=== PATIENT | male | born 1965 | race Caucasian/White ===

== ENCOUNTER 2017-02-19 21:30 | Inpatient (IN) ==
[2017-02-19] MEDS ORDERED: NITROGLYCERIN 2% OINT 1 INCH/GM PACK TOP STA (22:07)
[2017-02-19] MEDS ORDERED: ENOXAPARIN 100 MG/ML SYRINGE SUBCUT STA (22:07)
[2017-02-19] MEDS ORDERED: ONDANSETRON 4 MG/2 ML VIAL IV STA (22:07)
[2017-02-19] MEDS ORDERED: METOPROLOL TARTRATE 25 MG TABLET PO STA (22:07)
[2017-02-19] MEDS ORDERED: MORPHINE 2 MG/1 ML SYRINGE IV STA (22:07)
[2017-02-19] MEDS ORDERED: ASPIRIN 325 MG TABLET PO STA (22:07)
[2017-02-19] MEDS ORDERED: ALUM/MAG/SIMETH/LIDO VISC 1:1 30 ML BOTTLE PO STA (22:07)
[2017-02-19 22:15] LABS: Basophils % 0.2 % (0.0-0.8); Eosinophils # 0.2 10*3/uL (0.0-0.87); Eosinophils % 2.7 % (0.00-10.9); Hematocrit 42.5 VOL% (42.0-52.0); Hemoglobin 14.5 GM/DL (14.0-18.0); Immature Granulocytes % 0.2 %; Immature Granulocytes Absolute 0.01 #; Lymphocytes # 2.6 10*3/uL (1.4-4.0); Lymphocytes % 46.3 % (21.2-54.2); Mean Corpuscular HGB Conc 34.1 GM/DL (32-36); Mean Corpuscular Hemoglobin 29 PG (27-34); Mean Corpuscular Volume 83.7 FL (87-102); Mean Platelet Volume 9.5 FL (9.6-12.0); Monocytes # 0.5 10*3/uL (0.11-0.8); Monocytes % 9.7 % (1.7-12.7); Neutrophils # 2.3 10*3/uL (1.4-7.4); Neutrophils % 40.9 % (38.7-73.9); Platelet Count 231 T/CUMM (130-400); Red Blood Count 5.08 MC/CUMM (3.8-5.5); Red Cell Distribution Width 12.2 % (9.3-17.3); White Blood Count 5.6 T/CUMM (4-12)
[2017-02-19] MEDS ORDERED: ONDANSETRON 4 MG/2 ML VIAL ONE (22:22)
[2017-02-19] MEDS ORDERED: ASPIRIN 325 MG TABLET ONE (22:22)
[2017-02-19] MEDS ORDERED: METOPROLOL TARTRATE 25 MG TABLET ONE (22:22)
[2017-02-19] MEDS ORDERED: ENOXAPARIN 60 MG/0.6 ML SYRINGE ONE (22:22)
[2017-02-19] MEDS ORDERED: NITROGLYCERIN 2% OINT 1 INCH/GM PACK TOP ONE (22:22)
[2017-02-19] MEDS ORDERED: MORPHINE 2 MG/1 ML SYRINGE ONE (22:22)
[2017-02-19] MEDS ORDERED: ALUM/MAG/SIMETH/LIDO VISC 1:1 30 ML BOTTLE PO ONE (22:23)
[2017-02-19 22:28] LABS: PT Patient Result 10.4 SECS
--- NOTE | 2017-02-19 22:28 | XRay Report ---
XR chest 1V portable Indication: Chest pain. Comparison: Chest x-ray 02/23/2016 Technique: Portable AP chest was performed. Findings: Heart size, mediastinal contour, and hilar structures demonstrate no significant abnormalities. The lung parenchyma is clear. Bones and soft tissues demonstrate no significant abnormalities. Impression: 1. No evidence of acute pathology. 02/19/2017 10:25 PM PROCEDURE INTERPRETED AT [facility] OF [facility] Final Report Signed by: Dr. Brayan Kenney
[2017-02-19 22:37] LABS: Albumin 4.2 G/DL (3.4-5.0); Bilirubin,Total 0.9 MG/DL (0.2-1.0); Calcium 9.1 MG/DL (8.5-10.1); Magnesium 2.3 MG/DL (1.8-2.4); Osmolality,Calculated 283.1 MOS/KG (273-304); Potassium 3.5 MMOL/L (3.5-5.1); Total Protein 7.3 G/DL (6.4-8.3)
--- NOTE | 2017-02-19 23:14 | Emergency Department Note ---
Luis Ken Gwan, am scribing for, and in the presence of, Mark Velez MD 22 :11. Rosie Ken Charles R, MD, personally performed the services described in this documentation, ascribed by Leslee Smith in my presence, and it is both accurate and complete . Arrival - Arrival Chief Complaint: Chest Pain Stated Complaint: CHEST PAINS/RADIATING DOWN L ARM ED Nursing Triage Note: C/O Chest pain over left breast radiating down left arm. Onset 5-6 days ago. Pt reports taking one dose of nitro x 3 days, but just didn't want to come in. Pt denies SOB/Nausea/Diaphoresis. Pt reports that it feels like it did when he has had his previous MIs. EKG was performed at time of triage. Mode of Arrival: Ambulatory Limitations: No Limitations Source: Patient, Significant other, Old Records Reviewed, RN Notes Reviewed - History of Present Illness HPI Narrative: Patient is a 51 y/o white male who presents to the ED with crushing/squeezing chest pain that radiates down arm with an onset 5-6 days ago. Patient confirmed that he has had 2 heart cath (02/23/2016 and 06/2015), that he is followed by Dr. Kumari and Dr. Carty and that he runs 1.5 miles 2-3 times a week and has an onset of chest pain s/p. Patient noted that his associated sxs include diaphoresis and nausea. He continued to say that with onset of sxs today, he took NTG with minimal relief and that the pain is similar to pain with previous heart surgeries. While in ED, pt c/o squeezing chest pain. Onset (ago): day(s) Consistency: constant Severity: moderate Allergies/Adverse Reactions: Allergies Allergy/AdvReac Type Severity Reaction Status Date / Time Penicillins Allergy Severe HIVES Verified 02/23/16 10:03 Home Medications: Home Medications Medication Instructions Recorded Confirmed Type Aspirin EC Tab 81 mg PO DAILY tablet 06/04/15 02/19/17 Rx Losartan [Cozaar] 25 mg PO DAILY 06/04/15 02/19/17 History hydroCHLOROthiazide 12.5 mg PO DAILY 06/04/15 02/19/17 History [Hydrochlorothiazide] Ascorbic Acid Tab [Vitamin C Tab] 1,000 mg PO BID tablet 02/24/16 02/19/17 Rx Nitroglycerin Sl Tab [Nitrostat] 0.4 mg SL Q5M PRN #1 tablet 02/24/16 02/19/17 Rx Metformin HCl 500 mg PO BEDTIME 02/19/17 02/19/17 History Rosuvastatin [Crestor] 10 mg PO DAILY 02/19/17 02/19/17 History metFORMIN [Glucophage] 250 mg PO DAILY W/BREAKFAST 02/19/17 02/19/17 History Review of System - Review of System 12 point system: reviewed and no additional remarkable complaints except as stated - Review of System Constitutional: Present: as per HPI, diaphoresis Eyes: Absent: discharge Head/Ears/Nose/Throat: Absent: earache Respiratory: Absent: cough Cardiovascular: Present: as per HPI, chest pain Gastrointestinal: Present: as per HPI, nausea. Absent: abdominal pain, vomiting , diarrhea Genitourinary male: Absent: urgency Musculoskeletal: Absent: arm pain, back pain, leg pain, neck pain Skin: Absent: rash, lesions Neurological: Absent: headache, weakness Medical,Surgical,& Family Hx - Medical History Cardio: History of: Hypertension No history of: Aneurysm, Cardiac Dysrhythmia, Cerebrovascular Disease, Congenital Heart Disease, CHF, CAD, VA, Pacemaker, PVD, Valvular Heart Disease, Cardiovascular Problems Endocrine: History of: Dyslipidemia - Surgical History Cardiac Surgeries: Sugical HX of: Cardiac Catheterization (2014 WITH 2 STENTS) Patient Denies: Femoral-Popliteal Bypass Graft, Cardiac Surgery, Carotid Endarterectomy, Internal Defibrillator, Vascular Access Devices Thoracic Surgeries: Patient denies;: Organ Transplant, Lobectomy Neurologic Surgeries: Patient denies: Neurologic Surgery HEENT Surgeries: Patient denies: Carotid Endarterectomy Abdominal Surgeries: Surgical HX of: Hernia Repair Patient denies: Splenectomy Orthopedic Surgeries: Surgical HX of;: Total Knee Replacement (LEFT KNEE SCOPE) - Family History Family History: Reports;: Family Cancer (FATHER- PROSTATE CA), Family Diabetes ( MOTHER), Family Heart Disease (MOTHER AND FATHER), Family Hypertension (MOTHER AND FATHER) - Social History Smoking Status: Never smoker Frequency of Alcohol Use: None Type of Drug Use: None Exam Vital Signs: Vital Signs Temperature 98.6 F 02/19/17 21:45 Pulse Rate 58 L 02/19/17 21:45 Respiratory Rate 16 02/19/17 21:45 Blood Pressure 148/87 02/19/17 21:45 O2 Sat by Pulse Oximetry 100 02/19/17 21:45 - General General appearance: alert, in no apparent distress - Head Head exam: Present: atraumatic, normocephalic - Eye Eye exam: Present: normal appearance, PERRL, EOMI - ENT ENT exam: Present: normal oropharynx, mucous membranes moist, TM's normal bilaterally, normal external ear exam - Neck Neck exam: Present: full ROM, trachea midline. Absent: tenderness - Chest Chest inspection: Present: symmetric chest wall rise. Absent: tenderness - Respiratory Respiratory exam: Present: normal lung sounds bilaterally. Absent: respiratory distress - Cardiovascular Cardiovascular exam: Present: regular rate, normal rhythm, normal heart sounds. Absent: murmur - Abdominal Exam Abdominal exam: Present: soft, normal bowel sounds. Absent: distention, tenderness - Extremities Exam Extremities exam: Present: full ROM. Absent: tenderness - Back Exam Back exam: Present: full ROM. Absent: tenderness - Neurological Exam Neurological exam: Present: alert, oriented X3, CN II-XII intact. Absent: motor sensory deficit - Psychiatric Psychiatric exam: Present: normal affect, normal mood - Skin Skin exam: Present: warm, dry, intact, normal color Course - Consultations Consultation #1: Dr. Laird will admit patient Time: 23:14 Results - Labs CBC & BMP: 02/19/17 22:05 02/19/17 22:05 Lab Results: I have reviewed the patients labs Labs: Laboratory Tests 02/19/17 02/19/17 02/19/17 22:05 22:05 22:05 WBC 5.6 RBC 5.08 Hgb 14.5 Hct 42.5 MCV 83.7 L Plt Count 231 MPV 9.5 L INR 1.0 PT Patient/Control Mix 10.4 Sodium 142 Potassium 3.5 Chloride 105 Carbon Dioxide 30 BUN 12 Creatinine 0.90 Glucose 116 H Lipase 166.0 - Diagnostic Findings Procedure: Chest x-ray: report reviewed by me (No evidence of acute pathology. ) Disposition Clinical Impression: Chest pain, Coronary artery disease, Dyslipidemia, Hypertension Case discussed with: patient, patient's family Disposition: Still a Patient Condition: Stable Time of Disposition: 23:16
[2017-02-20] MEDS ORDERED: MORPHINE 2 MG/1 ML SYRINGE IV PRN (00:52)
[2017-02-20] MEDS ORDERED: MAGNESIUM SULF RIDER 4 GM in PREMIX 1 EACH IV PRN (00:52)
[2017-02-20] MEDS ORDERED: NITROGLYCERIN SL 0.4 MG TABLET SL PRN (00:52)
[2017-02-20] MEDS ORDERED: DEXTROSE 50% 25 GM/50 ML VIAL IV PRN (00:52)
[2017-02-20] MEDS ORDERED: MAGNESIUM SULF RIDER 2 GM in PREMIX 1 EACH IV PRN ×2 (00:52→10:35)
[2017-02-20] MEDS ORDERED: POTASSIUM CHLORIDE 20 MEQ TABLET PO PRN (00:52)
[2017-02-20] MEDS ORDERED: ONDANSETRON 4 MG/2 ML VIAL IV PRN (00:52)
[2017-02-20] MEDS ORDERED: GLUCAGON 1 MG VIAL IM PRN (00:52)
[2017-02-20] MEDS: SODIUM CHLORIDE 0.9% 1,000 ML IV SCH ×2 (01:35→21:30)
[2017-02-20] MEDS: NITROGLYCERIN 2% OINT 1 INCH/GM PACK TOP SCH ×2 (01:36→06:47)
[2017-02-20 06:13] LABS: Basophils % 0.4 % (0.0-0.8); Eosinophils # 0.1 10*3/uL (0.0-0.87); Hematocrit 42.5 VOL% (42.0-52.0); Hemoglobin 14.1 GM/DL (14.0-18.0); Immature Granulocytes % 0.2 %; Immature Granulocytes Absolute 0.01 #; Lymphocytes # 2.2 10*3/uL (1.4-4.0); Lymphocytes % 44.9 % (21.2-54.2); Mean Corpuscular HGB Conc 33.2 GM/DL (32-36); Mean Corpuscular Hemoglobin 28 PG (27-34); Mean Corpuscular Volume 85.7 FL (87-102); Mean Platelet Volume 9.6 FL (9.6-12.0); Monocytes # 0.5 10*3/uL (0.11-0.8); Monocytes % 9.1 % (1.7-12.7); Neutrophils # 2.1 10*3/uL (1.4-7.4); Neutrophils % 43.4 % (38.7-73.9); Platelet Count 224 T/CUMM (130-400); Red Blood Count 4.96 MC/CUMM (3.8-5.5); Red Cell Distribution Width 12.2 % (9.3-17.3); White Blood Count 4.9 T/CUMM (4-12)
--- NOTE | 2017-02-20 06:27 | EKG Report ---
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
--- NOTE | 2017-02-20 06:27 | EKG Report ---
Stationary ECG Study 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
[2017-02-20 06:50] LABS: Albumin 3.7 G/DL (3.4-5.0); Bilirubin,Total 1.2 MG/DL (0.2-1.0); Calcium 8.6 MG/DL (8.5-10.1); Magnesium 2.2 MG/DL (1.8-2.4); Potassium 4.2 MMOL/L (3.5-5.1); Risk Ratio 1.93; Total Protein 6.4 G/DL (6.4-8.3); VLDL CHOLESTEROL 24.2 MG/DL
[2017-02-20] MEDS ORDERED: metFORMIN 500 MG TABLET PO SCH ×2 (08:00→21:00)
[2017-02-20] MEDS: INSULIN REGULAR 100 UNIT/ML SUBCUT SCH ×4 (08:32→22:28)
--- NOTE | 2017-02-20 08:43 | Cardiology History & Physical ---
<Renita Ray - Last Filed: 02/20/17 09:29> Assessment and Plan - Time spent with patient Time spent with patient: Greater than 30 minutes (1) Chest pain Status: Acute Assessment and plan: See plan of care listed below. Current Visit: Yes (2) Coronary artery disease Status: Chronic Assessment and plan: See plan of care listed below. Current Visit: Yes (3) Dyslipidemia Status: Chronic Assessment and plan: See plan of care listed below. Current Visit: Yes (4) Hypertension Status: Chronic Assessment and plan: See plan of care listed below. Current Visit: Yes (5) Hyperglycemia Status: Acute Assessment and plan: See plan of care listed below. 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 Carty Mr. Logan is a 51 year old male with known history of coronary artery disease, routinely followed by Dr. Kumari. Patient presented to the emergency department yesterday evening with points of chest discomfort patient has cardiac risk factors significant for no history of coronary artery disease, dyslipidemia, hypertension and family history of coronary artery disease ( father has history of myocardial infarction). Patient is a lifetime non- smoker. Denies history of diabetes. Reports that he was just seen by Dr. Carty. Hemoglobin A1c was checked and was not diagnostic for diabetes. Patient has underwent heart catheterization twice since June 2015. Dr. Kumari performed heart catheterization June 04, 2015 with the following impressions noted: 1. EF 65% 2. Hemodynamics LV: 106/6 EDP:8 Ao:99/77 3. Left main: Angiographically normal 4: Left anterior descending artery: Mild disease in the proximal midsegment with high grade very distal small vessel disease up to 70%. There is diffuse disease in the first diagonal up to 90%. This is a small diagonal. 5: Left circumflex artery: A nondominant vessel has mild luminal irregularities there is diffuse disease in a first obtuse marginal that is a small vessel approximately 1.5 mm. 6: Right coronary artery: Is is a large dominant vessel has mild luminal irregularities in the proximal segment in the distal portion of the midsegment there is a very eccentric very hard 90% stenosis. There is a 99% stenosis just proximal to the bifurcation of the PDA and posterolateral branch. These lesions were successfully treated with over wrapping drug-eluting stents. January 2016 he underwent second heart catheterization after presenting with recurrent chest discomfort. The following impressions were noted: 1. LV: 143/3 LVEDP: 14 Ao:138/83 2. EF: 60% with no regional wall motion abnormality 3. LM: Angiographically normal 4. LAD: This is a highly diseased vessel with moderate stenosis in the entire mid segment there is highly calcified and hazy. There is slightly sluggish NAYELY 3 flow to the apex overall the vessel appears to be small. There is a first diagonal that is diffusely and highly diseased. It has NAYELY 3 flow. 5. LCx: This is a nondominant vessel there is a very distal obtuse marginal that has approximate 80% stenosis is less than a 1 mm vessel at this point. There is moderate disease in the first obtuse marginal 6. RCA: This is a dominant vessel. The previously deployed 3.5 Promus stents are widely patent. There is a 99% stenosis with near occlusion in the in segment area of the more proximal stent. There is also moderate mild-to- moderate proximal RCA disease. There is NAYELY-3 flow in the vessel both before and after the stent PCI. The pre-stenosis PCI appears to be 99% and the post stenosis PCI is 0. 7. RFA/ASHLEY: Angiographically normal Patient was in his usual state of health until Sunday afternoon when he began experiencing exertional chest discomfort while running. He tells me that he has been running 1-2 miles at least once to twice per week. He has been doing well with this. Unfortunately, on Sunday he began to experience a squeezing/ crushing pain to his left chest that radiated down his left arm. He confirms that this is the exact same way he felt prior to his previous stents. Relieved with nitroglycerin and rest. He denies shortness of breath and palpitations. Confirms nausea and diaphoresis. Over the course of the week, he continued to experience exertional chest discomfort. Yesterday, while at work she developed chest pain while walking. Later that evening, after returning home he and his decided it was best to be further evaluated in the emergency department as he has significant history of coronary artery disease. Patient reports that he has been compliant with his dual antiplatelet therapy. Denies fever, chills, cough, vomiting, abdominal pain, melena, orthopnea, PND and lower extremity swelling. Patient has been admitted under cardiology's service and housed on the telemetry unit. Patient was seen and examined on the telemetry unit. He is currently without chest pain, heaviness and tightness. Cardiac biomarkers have been negative 3. EKG is without significant change. Chest pain is not reproducible upon palpation. Chest x-ray does not reveal any acute cardiopulmonary processes. BNP 15. Will keep patient n.p.o. and further discuss with Dr. Amezquita. Assessment/plan: 1. CHEST PAIN - Patient presented to emergency department with complaints concerning for unstable angina. Received therapeutic dose of Lovenox yesterday evening in the emergency department. With his history of significant coronary artery disease, I think that patient would best benefit from heart catheterization in order to definitively rule out worsening of his underlying coronary artery disease. I will keep patient n.p.o. hold metformin and further discuss with Dr. Amezquita. 2. CORONARY ARTERY DISEASE - Continue dual antiplatelet therapy and lipid lowering agent. Historically, patient has not been on beta-cody as his heart rate will not tolerate currently heart rates are in the 50s. Unable to challenge patient with beta-cody at this time. 3. DYSLIPIDEMIA - Continue lipid-lowering agent. 4. HYPERTENSION - Blood pressure is well controlled. Will continue current plan of care. 5. HYPERGLYCEMIA - Will check hemoglobin A1c. Accu-Cheks ACHS. Further plan and addendum to follow per Dr. Amezquita. Home Medications Medication Instructions Recorded Confirmed Type Aspirin EC Tab 81 mg PO DAILY tablet 06/04/15 02/20/17 Rx Losartan [Cozaar] 25 mg PO DAILY 06/04/15 02/20/17 History hydroCHLOROthiazide 12.5 mg PO DAILY 06/04/15 02/20/17 History [Hydrochlorothiazide] Ascorbic Acid Tab [Vitamin C Tab] 1,000 mg PO BID tablet 02/24/16 02/20/17 Rx Nitroglycerin Sl Tab [Nitrostat] 0.4 mg SL Q5M PRN #1 tablet 02/24/16 02/20/17 Rx Metformin HCl 250 mg PO BEDTIME 02/19/17 02/20/17 History Rosuvastatin [Crestor] 10 mg PO DAILY 02/19/17 02/20/17 History Clopidogrel [Plavix] 75 mg PO DAILY 02/20/17 02/20/17 History Allergies Allergy/AdvReac Type Severity Reaction Status Date / Time Penicillins Allergy Severe HIVES Verified 02/23/16 10:03 - Constitutional Constitutional: Present: malaise. Absent: chills, fatigue, fever(s), frequent falls, headache(s), lethargy, weakness, weight gain, weight loss - Cardiovascular Cardiovascular: Present: as per HPI, chest pain at rest, chest pain with activity, diaphoresis, radiating jaw, neck or arm pain. Absent: claudication, dyspnea, dyspnea on exertion, lightheadedness, orthopnea, palpitations, PND - Respiratory Respiratory: Absent: cough, dyspnea, dyspnea on exertion, wheezing, snoring, pain on inspiration, change in phlegm color - Gastrointestinal Gastrointestinal: Present: nausea. Absent: abdominal pain, change in bowel habits, coffee ground emesis, dyspepsia, heartburn, hematemesis, hematochezia, loose stools, melena, vomiting - Neurological Neurological: Absent: abnormal gait, abnormal speech, behavioral changes, dizziness, frequent falls, paresthesias, syncope - Hematologic/Lymphatic Hematologic/Lymphatic: Absent: easy bleeding, easy bruising, lymphadenopathy Medical,Surgical,& Family Hx - Medical History Cardio: History of: CAD, Hypertension Endocrine: History of: Dyslipidemia - Surgical History Cardiac Surgeries: Sugical HX of: Cardiac Catheterization (2014 WITH 2 STENTS, January 2016 with 1 stent) Abdominal Surgeries: Surgical HX of: Hernia Repair (1993) Orthopedic Surgeries: Surgical HX of;: Total Knee Replacement (LEFT KNEE SCOPE) - Family History Family History: Reports;: Family Cancer (FATHER- PROSTATE CA), Family Diabetes ( MOTHER), Family Heart Disease (Father), Family Hypertension (MOTHER AND FATHER) - Social History Smoking Status: Never smoker Frequency of Alcohol Use: None Type of Drug Use: None Cardiology Physical Exam - Constitutional Vitals: Vital Signs Temp Pulse Resp BP Pulse Ox 98.5 F 54 L 18 114/66 96 02/20/17 07:49 02/20/17 07:49 02/20/17 07:49 02/20/17 07:49 02/20/17 07:49 Intake and Output 02/19/17 02/20/17 02/20/17 22:59 06:59 14:59 Intake Total 0 / 0 Output Total 300 / 300 Balance -300 / -300 Intake: Oral 0 / 0 Output: Urine 300 / 300 Other: Weight 175 lb Exam: General: Appears well with no apparent distress. Pleasant and cooperative. Appears comfortable. HEENT: PERRL, normocephalic, atraumatic. Mucous membranes moist. No jaundice noted. Conjunctiva moist and clear, sclerae anicteric Neck: No JVD/HJR, no thyromegaly or lymphadenopathy noted. No carotid bruit appreciated Cardiac: Regular rate and rhythm. No murmur rub or gallop. Lungs: Clear to auscultation without accessory muscle use to assist the respiratory pattern. Not requiring oxygen. Abdomen: Soft, bowel sounds normoactive. Nontender and nondistended. No abdominal bruit or thrill noted. No masses noted. Extremities: No clubbing, cyanosis noted. No edema noted. Upper extremity pulses 2+. Lower extremity pulses 2+. Capillary refill less than 3 seconds. Skin: No unusual lesions or rashes. No skin breakdown appreciated. Neuro: Awake, alert and oriented 3. Moves all extremities well without hemiparesis or paralysis. No essential tremor is appreciated. Result/EKG - Labs CBC & BMP: 02/20/17 05:48 02/20/17 05:48 Lab Results: I have reviewed the past 24 hour labs Labs: Laboratory Results - last 24 hr 02/20/17 02/20/17 02/20/17 01:41 05:48 05:48 WBC 4.9 RBC 4.96 Hgb 14.1 Hct 42.5 MCV 85.7 L MCH 28 MCHC 33.2 RDW 12.2 Plt Count 224 MPV 9.6 Neut % (Auto) 43.4 Lymph % (Auto) 44.9 [place] % (Auto) 9.1 Eos % (Auto) 2.0 Baso % (Auto) 0.4 Neut # (Auto) 2.1 Lymph # (Auto) 2.2 [place] # (Auto) 0.5 Eos # (Auto) 0.1 Baso # (Auto) 0.0 Immature Gran % 0.2 Nucleated RBC % 0.0 Immature Gran # 0.01 Nucleated RBCs # 0.00 Sodium Potassium Chloride Carbon Dioxide Anion Gap BUN Creatinine GFR Calculation BUN/Creatinine Ratio Glucose Calculated Osmolality Calcium Magnesium Total Bilirubin AST ALT Alkaline Phosphatase Troponin I 0.022 0.028 B-Natriuretic Peptide Total Protein Albumin Globulin Albumin/Globulin Ratio Triglycerides Cholesterol LDL Cholesterol VLDL Cholesterol HDL Cholesterol Heart Disease Risk Ratio 02/20/17 02/20/17 05:48 05:48 WBC RBC Hgb Hct MCV MCH MCHC RDW Plt Count MPV Neut % (Auto) Lymph % (Auto) [place] % (Auto) Eos % (Auto) Baso % (Auto) Neut # (Auto) Lymph # (Auto) [place] # (Auto) Eos # (Auto) Baso # (Auto) Immature Gran % Nucleated RBC % Immature Gran # Nucleated RBCs # Sodium 143 Potassium 4.2 Chloride 106 Carbon Dioxide 32 Anion Gap 9.2 BUN 13 Creatinine 0.90 GFR Calculation 113 BUN/Creatinine Ratio 14.00 Glucose 88 Calculated Osmolality 283.0 Calcium 8.6 Magnesium 2.2 Total Bilirubin 1.20 H AST 20 ALT 32 Alkaline Phosphatase 67 Troponin I B-Natriuretic Peptide 15 Total Protein 6.4 Albumin 3.7 Globulin 2.7 Albumin/Globulin Ratio 1.3 Triglycerides 121 Cholesterol 81 LDL Cholesterol 40.0 VLDL Cholesterol 24.2 HDL Cholesterol 42 Heart Disease Risk Ratio 1.93 <Mary Amezquita - Last Filed: 02/20/17 10:28> History of Present Illness History of present illness: I have personally interviewed and examined the patient, reviewed the chart and discussed medical decision-making with practitioner Cory. I have read this note and agree with the documentation herein with the following clarification: The patient does have a history of prior coronary artery disease. Last PCI was approximately 1 year ago. He presents with typical anginal symptoms. I have discussed the role, risks and benefits of cardiac catheterization with the patient he is agreeable to proceeding. No history of periprocedural complications. No history of IVP dye allergy. He is tolerating dual antiplatelet therapy without complication. Cardiology Physical Exam - Constitutional Vitals: Vital Signs Temp Pulse Resp BP Pulse Ox 98.5 F 54 L 18 114/66 96 02/20/17 07:49 02/20/17 07:49 02/20/17 07:49 02/20/17 07:49 02/20/17 07:49 Intake and Output 02/19/17 02/20/17 02/20/17 23:59 07:59 15:59 Intake Total 0 / 0 Output Total 300 / 300 Balance -300 / -300 Intake: Oral 0 / 0 Output: Urine 300 / 300 Other: Weight 79.379 kg Patient Weight 02/20/17 23:59 Weight 79.379 kg Result/EKG - Labs CBC & BMP: 05/23/17 05:48 02/20/17 05:48 Labs: Laboratory Results - last 24 hr 02/20/17 02/20/17 02/20/17 01:41 05:48 05:48 WBC 4.9 RBC 4.96 Hgb 14.1 Hct 42.5 MCV 85.7 L MCH 28 MCHC 33.2 RDW 12.2 Plt Count 224 MPV 9.6 Neut % (Auto) 43.4 Lymph % (Auto) 44.9 [place] % (Auto) 9.1 Eos % (Auto) 2.0 Baso % (Auto) 0.4 Neut # (Auto) 2.1 Lymph # (Auto) 2.2 [place] # (Auto) 0.5 Eos # (Auto) 0.1 Baso # (Auto) 0.0 Immature Gran % 0.2 Nucleated RBC % 0.0 Immature Gran # 0.01 Nucleated RBCs # 0.00 Sodium Potassium Chloride Carbon Dioxide Anion Gap BUN Creatinine GFR Calculation BUN/Creatinine Ratio Glucose Calculated Osmolality Calcium Magnesium Total Bilirubin AST ALT Alkaline Phosphatase Troponin I 0.022 0.028 B-Natriuretic Peptide Total Protein Albumin Globulin Albumin/Globulin Ratio Triglycerides Cholesterol LDL Cholesterol VLDL Cholesterol HDL Cholesterol Heart Disease Risk Ratio 02/20/17 02/20/17 05:48 05:48 WBC RBC Hgb Hct MCV MCH MCHC RDW Plt Count MPV Neut % (Auto) Lymph % (Auto) [place] % (Auto) Eos % (Auto) Baso % (Auto) Neut # (Auto) Lymph # (Auto) [place] # (Auto) Eos # (Auto) Baso # (Auto) Immature Gran % Nucleated RBC % Immature Gran # Nucleated RBCs # Sodium 143 Potassium 4.2 Chloride 106 Carbon Dioxide 32 Anion Gap 9.2 BUN 13 Creatinine 0.90 GFR Calculation 113 BUN/Creatinine Ratio 14.00 Glucose 88 Calculated Osmolality 283.0 Calcium 8.6 Magnesium 2.2 Total Bilirubin 1.20 H AST 20 ALT 32 Alkaline Phosphatase 67 Troponin I B-Natriuretic Peptide 15 Total Protein 6.4 Albumin 3.7 Globulin 2.7 Albumin/Globulin Ratio 1.3 Triglycerides 121 Cholesterol 81 LDL Cholesterol 40.0 VLDL Cholesterol 24.2 HDL Cholesterol 42 Heart Disease Risk Ratio 1.93
[2017-02-20] MEDS ORDERED: ENOXAPARIN 60 MG/0.6 ML SYRINGE SUBCUT SCH (09:00)
[2017-02-20] MEDS ORDERED: CLOPIDOGREL 75 MG TABLET PO SCH (09:00)
[2017-02-20] MEDS ORDERED: ROSUVASTATIN 10 MG TABLET PO SCH ×2 (09:00→11:43)
[2017-02-20] MEDS ORDERED: diphenhydrAMINE CAP 25 MG CAPSULE ONE (10:15)
[2017-02-20] MEDS ORDERED: DIAZEPAM 5 MG TABLET ONE (10:15)
[2017-02-20] MEDS ORDERED: HEPARIN/NACL 0.9% 2 UNITS/ML 1,000 ML IV ONE (10:20)
[2017-02-20] MEDS ORDERED: LIDOCAINE 1% 20 ML VIAL ONE (10:20)
[2017-02-20] MEDS ORDERED: SODIUM BICARBONATE 2.4 MEQ/5 ML VIAL ONE (10:20)
[2017-02-20] MEDS: ASCORBIC ACID 500 MG TABLET PO SCH ×2 (10:21→22:22)
[2017-02-20] MEDS: PANTOPRAZOLE 40 MG TABLET PO SCH (10:21)
[2017-02-20] MEDS: LOSARTAN 25 MG TABLET PO SCH (10:21)
[2017-02-20] MEDS: ASPIRIN EC 81 MG TABLET PO SCH (10:21)
[2017-02-20] MEDS ORDERED: DIAZEPAM 5 MG TABLET PO ONE ×2 (10:25→10:44)
[2017-02-20] MEDS ORDERED: diphenhydrAMINE CAP 25 MG CAPSULE PO ONE ×2 (10:25→10:43)
[2017-02-20] MEDS: hydroCHLOROthiazide 12.5 MG CAPSULE PO SCH (10:27)
--- NOTE | 2017-02-20 10:29 | History and Physical Update ---
Sedation H&P Update - History and Physical H&P was reviewed, the patient examined and there: are no changes in the patients condition since last H&P was completed. - Dictation Physical: refer to H&P completed by admitting physician - Physical Exam Mental Status: alert and oriented Heart: regular rate and rhythm Lung: clear to auscultation Abdomen: within normal limits Vitals: within normal limits - Sedation Plan for Sedation: moderate Patient Consent: Procedure disscussed with patient and patinet has consented., Risks and benefits were discussed with patient,including infection,, bleeding, injury to surrounding structures, seizure, temporary nerve, Patient understands and accepts potential risks/benefits and agrees to, proceed. ASA Class: IV Airway Assessment: Class I: Soft palate, uvula, fauces, pillars visible
[2017-02-20] MEDS ORDERED: MIDAZOLAM 2 MG/2 ML VIAL ONE ×2 (10:34→10:47)
[2017-02-20] MEDS ORDERED: fentaNYL 100 MCG/2 ML VIAL ONE (10:34)
[2017-02-20] MEDS ORDERED: POTASSIUM CHLORIDE RIDER 10 MEQ in PREMIX 1 EACH IV PRN (10:35)
[2017-02-20] MEDS ORDERED: BIVALIRUDIN 250 MG VIAL IV ONE (10:55)
[2017-02-20] MEDS ORDERED: CLOPIDOGREL 300 MG TABLET ONE (11:23)
[2017-02-20] MEDS ORDERED: TICAGRELOR 90 MG TABLET ONE (11:24)
[2017-02-20] MEDS ORDERED: ACETAMINOPHEN 325 MG TABLET PO PRN (11:40)
[2017-02-20] MEDS ORDERED: ACETAMINOPHEN/CODEINE 300-30 MG TABLET PO PRN (11:40)
--- NOTE | 2017-02-20 12:00 | Cardiology Operative Report ---
Date of Procedure:: 02/20/17 Pre-op diagnosis: ACS Post-op diagnosis: other (Severe circumflex stenosis) Procedure: 1. Selective left and right coronary angiography. 2. Left heart catheterization with left ventriculogram. 3. Right iliac angiography to rule out vascular complications. 4. Percutaneous intervention of the mid circumflex artery with placement of synergy 3 x 16 mm drug-eluting stent. Impression: 1. Severe single-vessel coronary artery disease with 99% mid LAD stenosis. 2. Right dominant coronary arteries. Stents in right coronary artery are patent 3. Ejection fraction 65 %. 4. Angiographically normal right iliac artery without evidence of vascular complications. 5. Successful PCI of the mid circumflex coronary artery as described above. 6. Moderate residual coronary disease in the remainder of the vessels. Plan: 1. DAPT > 12 months. 2. Risk factor modification. Equipment: Diagnostic 6 Moroccan JL4, JR4, pigtail catheters Guiding 6 Moroccan EBU 3.5, 180cm Prowater wire, apex 2.5 x 12 mm balloon, synergy 3 x 16 mm drug-eluting stent, Trek 3 x 12 mm non-compliant balloon Hemodynamics: Aortic pressure 116/70 mmHg, left ventricular pressure 107/1 mmHg, LVEDP 11 mmHg Sedation: Versed 3 mg, fentanyl 75 mcg Procedure: After informed consent was obtained the patient was prepped and draped in sterile fashion. The right groin was infiltrated with 1% lidocaine and the right femoral artery was accessed via modified Seldinger technique using a micropuncture needle and a 6 Moroccan femoral arterial sheath was placed. All catheter exchanges were performed over a guidewire under fluoroscopic guidance. Diagnostic 6 Moroccan JL4 and JR4 catheters were advanced to the left and right coronary arteries respectively and multiple cineangiograms were performed in varying degrees of obliquity and angulation. Thereafter a pigtail catheter was advanced into the left ventricle where hemodynamics were obtained followed by left ventriculogram. Percutaneous intevention of the mid circumflex artery was then performed as described below. At conclusion of the procedure right iliac angiography was performed to rule out vascular complications. Findings: 1. The left main artery has 20-30% stenosis, most severe at the bifurcation, but no significant stenosis. 2. The left anterior descending artery extends to the apex and wraps around. There is diffuse disease that is up to moderate in severity, 40% stenosis at the level of the first diagonal artery. The first diagonal artery has moderate to severe diffuse disease but is less than 2 mm in caliber. 3. There is an intermediate ramus branch that is small caliber with diffuse mild to moderate disease. 4. The circumflex artery is a nondominant vessel. There is mild to moderate diffuse disease with severe stenosis, 99% with NAYELY II flow, in the mid segment. The first obtuse marginal artery also has severe 80% stenosis, but is less than 2 mm in caliber. 5. The right coronary artery has patent stents in the mid to distal segment. Otherwise there is mild residual coronary artery disease. It is dominant. 6. Ejection fraction is 65 % with normal anterior, inferior and apical wall motion. 7. No significant mitral regurgitation. 8. No significant aortic stenosis. 9. The right iliac artery is angiographically normal without evidence of vascular complications. PCI: The patient was anticoagulated with Angiomax. After appropriate anticoagulation was confirmed with an ACT measurement, a guiding 6 Moroccan EBU 3.5 catheter was advanced to the circumflex coronary artery. A [employer] 180 cm wire was used to traverse the circumflex artery. A apex 2.5 x 12 mm balloon was advanced to the site of stenosis and angioplasty was performed at 8 more. Thereafter, a synergy 3 x 16 mm drug-eluting stent was advanced to the site of angioplasty, and successfully deployed at 11 more. Afterwards, a non-compliant trek 3 x 12 mm balloon was advanced into the stented segment and post-dilation was performed at 18 more. Satisfactory angiographic result was obtained with appropriate step-up proximally and distally, and no evidence of residual vascular complications. Preoperatively there is 99% stenosis with NAYELY II flow , postoperatively there is 0% residual stenosis with NAYELY-3 flow. Contrast use: Omnipaque 179 cc Fluoro time: 9 minutes Complications: none Specimens removed: none Devices implanted: stent as described above Anesthesia: moderate conscious sedation Surgeon / Physician: Mary Amezquita Wire Cutter: none (Vivian Pacheco) Estimated blood loss: minimal Specimens: none sent Condition: stable Disposition: floor
[2017-02-20] MEDS: TICAGRELOR 90 MG TABLET PO SCH (22:24)
[2017-02-21 06:10] LABS: Basophils % 0.2 % (0.0-0.8); Eosinophils # 0.1 10*3/uL (0.0-0.87); Eosinophils % 1.4 % (0.00-10.9); Hematocrit 39.2 VOL% (42.0-52.0); Hemoglobin 13.3 GM/DL (14.0-18.0); Immature Granulocytes % 0.2 %; Immature Granulocytes Absolute 0.01 #; Lymphocytes % 30.7 % (21.2-54.2); Mean Corpuscular HGB Conc 33.9 GM/DL (32-36); Mean Corpuscular Hemoglobin 29 PG (27-34); Mean Corpuscular Volume 85.8 FL (87-102); Mean Platelet Volume 10.3 FL (9.6-12.0); Monocytes # 0.6 10*3/uL (0.11-0.8); Monocytes % 9.7 % (1.7-12.7); Neutrophils # 3.8 10*3/uL (1.4-7.4); Neutrophils % 57.8 % (38.7-73.9); Platelet Count 194 T/CUMM (130-400); Red Blood Count 4.57 MC/CUMM (3.8-5.5); Red Cell Distribution Width 12.2 % (9.3-17.3); White Blood Count 6.6 T/CUMM (4-12)
[2017-02-21 06:37] LABS: Calcium 8.3 MG/DL (8.5-10.1); Magnesium 2.3 MG/DL (1.8-2.4); Osmolality,Calculated 286.8 MOS/KG (273-304); Potassium 4.2 MMOL/L (3.5-5.1)
--- NOTE | 2017-02-21 08:02 | EKG Report ---
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
[2017-02-21 08:14] VITALS: BP 128/77
[2017-02-21] MEDS: INSULIN REGULAR 100 UNIT/ML SUBCUT SCH ×2 (09:17→12:31)
[2017-02-21] MEDS: ASCORBIC ACID 500 MG TABLET PO SCH (10:08)
[2017-02-21] MEDS: LOSARTAN 25 MG TABLET PO SCH (10:08)
[2017-02-21] MEDS: ASPIRIN EC 81 MG TABLET PO SCH (10:08)
[2017-02-21] MEDS: hydroCHLOROthiazide 12.5 MG CAPSULE PO SCH (10:08)
[2017-02-21] MEDS: TICAGRELOR 90 MG TABLET PO SCH (10:08)
[2017-02-21] MEDS: PANTOPRAZOLE 40 MG TABLET PO SCH (10:09)
--- NOTE | 2017-02-21 11:16 | Discharge Summary ---
Lisa Ken April RN, am scribing for, and in the presence of, Mary Lou Klein NP 11:15. <Mary Lou Klein - Last Filed: 02/21/17 11:14> Hospital Course - Hospital Course Hospital Course: [employer] Seg[employer] Leader: Dr. Kumari PCP: Dr. Carty Mr. Logan is a 51-year-old male who is routinely followed by Dr. Kumari with known coronary artery disease. He presented to the emergency department on Sunday after experiencing exertional chest discomfort while running to 3 days before. He described it as a squeezing crushing pain that radiated down his left arm and felt the same as he had prior to his previous stents. It was relieved with nitroglycerin and rest. After being evaluated emergency department the patient was admitted to cardiology service. He was evaluated by Dr. Amezquita yesterday and had a heart cath with the following findings and intervention: 1. The left main artery has 20-30% stenosis, most severe at the bifurcation, but no significant stenosis. 2. The left anterior descending artery extends to the apex and wraps around. There is diffuse disease that is up to moderate in severity, 40% stenosis at the level of the first diagonal artery. The first diagonal artery has moderate to severe diffuse disease but is less than 2 mm in caliber. 3. There is an intermediate ramus branch that is small caliber with diffuse mild to moderate disease. 4. The circumflex artery is a nondominant vessel. There is mild to moderate diffuse disease with severe stenosis, 99% with NAYELY II flow, in the mid segment. The first obtuse marginal artery also has severe 80% stenosis, but is less than 2 mm in caliber. 5. The right coronary artery has patent stents in the mid to distal segment. Otherwise there is mild residual coronary artery disease. It is dominant. 6. Ejection fraction is 65 % with normal anterior, inferior and apical wall motion. 7. No significant mitral regurgitation. 8. No significant aortic stenosis. 9. The right iliac artery is angiographically normal without evidence of vascular complications. PCI: The patient was anticoagulated with Angiomax. After appropriate anticoagulation was confirmed with an ACT measurement, a guiding 6 Yi EBU 3.5 catheter was advanced to the circumflex coronary artery. A [employer] 180 cm wire was used to traverse the circumflex artery. A apex 2.5 x 12 mm balloon was advanced to the site of stenosis and angioplasty was performed at 8 more. Thereafter, a synergy 3 x 16 mm drug-eluting stent was advanced to the site of angioplasty, and successfully deployed at 11 more. Afterwards, a non-compliant trek 3 x 12 mm balloon was advanced into the stented segment and post-dilation was performed at 18 more. Satisfactory angiographic result was obtained with appropriate step-up proximally and distally, and no evidence of residual vascular complications. Preoperatively there is 99% stenosis with NAYELY II flow , postoperatively there is 0% residual stenosis with NAYELY-3 flow. Mr. Logan is seen sitting up in chair, dressed, and ready to go home. He denies complaints of chest pain, palpitations, shortness of breath, or dizziness. EKG this morning showed sinus bradycardia with heart rate of 51. Vital signs been stable, blood pressure this morning 128/77. Labs are unremarkable. Right groin is stable without evidence of bruit or hematoma. Good pulses present to lower extremities. Mr. Logan has met maximum hospital benefit and will be discharged home. He will be discharged home on his usual home medications with the exception of Plavix. Instead he will be placed on Brilinta 90 mg p.o. twice daily. He will restart his metformin to 50 mg that he takes at night on . His Crestor will be increased to 20 mg daily. We will add Protonix 40 mg 1 daily. Due to bradycardia, no betablocker being prescribed. - Time spent with patient Time with patient DS: Greater than 30 minutes Diagnosis - Discharge Diagnosis (1) Coronary artery disease Status: Chronic (2) Dyslipidemia Status: Chronic (3) Hypertension Status: Chronic Specialty Discharge - Follow Up or Referrals Follow up with: Charo Kumari DO [Physician] - 03/08/17 8:00 am (CBC BMP mag EKG) - Speciality Discharge Instructions Cardiology Instructions: Return to work March 05, 2017--restart metformin evening Discharge Plan - Discharge Data Disposition: Disch To Home/Self Care Condition at Discharge: Stable Discharge Diet: heart healthy Activity: other (Post cath expectations) Hygiene: other (Post cath expectations) Weight Bearing at Discharge: other (His cath expectations) Driving: other (Post cath expectations) Contact your physician if you experience:: fever over 101, Difficulty voiding, Redness or swelling, Nausea/Vomiting, Shortness of breath, Bleeding, pain uncontrolled by pain medications - Discharge Medications New Pantoprazole Tab [Protonix Tab] 40 mg PO DAILY #90 tablet Rosuvastatin [Crestor] 20 mg PO DAILY #90 tablet Ticagrelor [Brilinta] 90 mg PO BID #180 tablet Continue hydroCHLOROthiazide [Hydrochlorothiazide] 12.5 mg PO DAILY Losartan [Cozaar] 25 mg PO DAILY Aspirin EC Tab 81 mg PO DAILY tablet Ascorbic Acid Tab [Vitamin C Tab] 1,000 mg PO BID tablet Nitroglycerin Sl Tab [Nitrostat] 0.4 mg SL Q5M PRN #1 tablet PRN Reason: Chest Pain Metformin HCl 250 mg PO BEDTIME Discontinued Clopidogrel [Plavix] 75 mg PO DAILY Rosuvastatin [Crestor] 10 mg PO DAILY - Follow Up or Referral Follow Up: Charo Kumari DO [Physician] - 03/08/17 8:00 am (CBC BMP mag EKG) - Forms/Instructions Forms: Acute Care Work/School Release Instructions: Coronary Artery Disease (GEN), Left Heart Catheterization (DC), Heart Healthy Diet (GEN), Coronary Intravascular Stent Placement (DC) Exam - Constitutional Vitals: Period Temp Pulse Resp BP Sys/[place] Pulse Ox Last 24 Hr 98.1 F-98.5 F 52-60 18-18 106-128/61-77 94-98 General appearance: normal weight, no acute distress - Head Head exam: Absent: abrasion, hematoma - Respiratory Respiratory exam: Present: clear to auscultation bilaterally. Absent: accessory muscle use, chest wall tenderness - Cardiovascular Cardiovascular exam: Present: bradycardia, regular rate and rhythm. Absent: diastolic murmur, systolic murmur - GI/Abdominal GI/Abdominal exam: Present: normal bowel sounds, soft. Absent: distended, tenderness - Extremities Exam Extremities exam: Present: other (Right groin stable without evidence of bleeding or hematoma, good pulses). Absent: edema - Neurological Exam Neurological exam: Present: alert, oriented X3 - Psychiatric Psychiatric exam: Present: normal affect, normal mood - Skin Skin exam: Present: warm, dry Discharge Results Labs on day of discharge: Labs from last 24 hours 02/21/17 02/21/17 02/20/17 03:55 03:55 22:28 WBC 6.6 D RBC 4.57 Hgb 13.3 L Hct 39.2 L MCV 85.8 L MCH 29 MCHC 33.9 RDW 12.2 Plt Count 194 MPV 10.3 Neut % (Auto) 57.8 Lymph % (Auto) 30.7 [place] % (Auto) 9.7 Eos % (Auto) 1.4 Baso % (Auto) 0.2 Neut # (Auto) 3.8 Lymph # (Auto) 2.0 [place] # (Auto) 0.6 Eos # (Auto) 0.1 Baso # (Auto) 0.0 Immature Gran % 0.2 Nucleated RBC % 0.0 Immature Gran # 0.01 Nucleated RBCs # 0.00 Sodium 144 Potassium 4.2 Chloride 109 H Carbon Dioxide 27 Anion Gap 12.2 BUN 16 Creatinine 1.00 GFR Calculation 100 BUN/Creatinine Ratio 16.00 Glucose 98 POC Glucose 109 H Calculated Osmolality 286.8 Calcium 8.3 L Magnesium 2.3 - Imaging and Cardiology Cardiology Procedure: report reviewed by me Procedure: Chest x-ray: report reviewed by me DS: Provider Consults: 02/20/17 11:40 Consult to Cardiac Rehabilitation [CONS] Routine Reason for Cardiac Rehabilitation: Risk Factor Modification Expected date of discharge: 02/21/17 <Mary Amezquita - Last Filed: 02/21/17 22:14> Hospital Course - Hospital Course Hospital Course: I have personally interviewed and evaluated the patient, reviewed the chart and discussed medical decision-making with Practitioner Ernie. I have read this note and agree with her documentation here in. Clarification: The patient's metformin will be 250 mg, not 50 Ernie eKn Bonnie E, NP, personally performed the services described in this documentation, ascribed by Lou Gonzalez RN in my presence, and it is both accurate and complete 115 .
== END 2017-02-21 12:36 | disposition home or self-care (01) | DRG 247 ==
LOC: N.ED 21:30 → N.EDINP 23:16 → N.TELEN 02-20 00:31
PROVIDERS: ADMIT Internal Medicine Clinical Cardiac Electrophysiology; ATTEND Internal Medicine Clinical Cardiac Electrophysiology
PROC: CLCCHCL (ICD-10-PCS; 2017-02-20 10:45)